=== PATIENT | female | born 1995 | race Caucasian/White ===

== ENCOUNTER 2022-04-06 07:15 | Day surgery (SDC) | payer OTHER ==
[~2022-04-06] VITALS: Ht 167.6 cm; Wt 70.3 kg
[~2022-04-06 07:15] MED LIST: ADDE10CA3 PO; ALLE180T33 PO; FLUTISP; IBUP200C28 PO; ceFAZolin SOD 2 GM in IV 1 EA IV ONE
[2022-04-06] MEDS ORDERED: LIDOCAINE 2% 100MG/5ML SDV (FOR ANES.) As Ordered ONE (07:55)
[2022-04-06] MEDS ORDERED: propofoL 500 MG/50 ML VIAL As Ordered ONE (07:56)
[2022-04-06] MEDS ORDERED: MIDAZOLAM INJ 2MG/2ML VIAL (J2250 PER 1MG) As Ordered ONE (07:56)
[2022-04-06] MEDS ORDERED: fentaNYL 100 MCG/2 ML INJECTION As Ordered ONE (07:57)
[2022-04-06] MEDS ORDERED: LR 1,000 ML IV SCH ×2 (08:00→09:15)
[2022-04-06] MEDS ORDERED: LIDOCAINE 1% SDV 30ML VIAL As Ordered ONE (08:17)
[2022-04-06] MEDS ORDERED: BUPIVACAINE HCL 0.5% 30ML VIAL As Ordered ONE (08:17)
[2022-04-06] MEDS ORDERED: dexameTHASONE 4 MG/ML 1ML VIAL (J1100 PER 1MG) As Ordered ONE (08:17)
[2022-04-06] MEDS ORDERED: METOCLOPRAMIDE INJ 10MG/2ML VIAL (J2765 PER 1) IV PRN (09:15)
[2022-04-06] MEDS ORDERED: ONDANSETRON 4MG 2ML VIAL IV PRN (09:15)
[2022-04-06] MEDS ORDERED: fentaNYL 100 MCG/2 ML INJECTION IV PRN (09:15)
[2022-04-06] MEDS ORDERED: oxyCODONE 5MG TAB PO PRN (09:15)
[2022-04-06 10:10] VITALS: BP 122/86
== END 2022-04-06 10:30 | disposition home or self-care (01) ==
LOC: M SDC 07:15
PROVIDERS: ATTEND Podiatrist Foot & Ankle Surgery
DX: M21.6X2 Other acquired deformities of left foot (principal); M79.672 Pain in left foot; F90.9 Attention-deficit hyperactivity disorder, unspecified type; Z79.899 Other long term (current) drug therapy
CPT/HCPCS: 28238; 81025; 88300; C1713; J0690; J2250; J3010